=== PATIENT | female | born 1940 | race Caucasian/White ===

== ENCOUNTER → 2016-09-17 | Outpatient (CLI) | payer MEDICARE, OTHER ==
[2016-09-17 10:20] LABS: BUN/CREATININE RATIO 27 (0-10)
== END ==
LOC: LAB 09:07
PROVIDERS: Emergency Medicine
DX: R73.09 Other abnormal glucose (principal); I10 Essential (primary) hypertension; E78.2 Mixed hyperlipidemia
CPT/HCPCS: 36415; 80048; 83036

== ENCOUNTER → 2016-12-17 | Outpatient (CLI) | payer MEDICARE, OTHER ==
[2016-12-17 10:18] LABS: BUN/CREATININE RATIO 36 (0-10)
== END ==
LOC: LAB 09:13
PROVIDERS: Emergency Medicine
DX: E55.9 Vitamin D deficiency, unspecified (principal); E78.2 Mixed hyperlipidemia; E79.0 Hyperuricemia without signs of inflammatory arthritis and tophaceous disease; G56.01 Carpal tunnel syndrome, right upper limb; G56.81 Other specified mononeuropathies of right upper limb; I10 Essential (primary) hypertension; M13.872 Other specified arthritis, left ankle and foot; M76.60 Achilles tendinitis, unspecified leg; M76.62 Achilles tendinitis, left leg; R23.8 Other skin changes; R73.09 Other abnormal glucose
CPT/HCPCS: 36415; 80053; 80061; 83036; 83704; 84550

== ENCOUNTER → 2020-05-31 | Outpatient (CLI) | payer MEDICARE, OTHER ==
[~2020-05-31] MED LIST: AMLODIPINE BESYL5 MG PO; ASPIR 8181 MG PO; CRESTOR10 MG PO; HYDROCHLOROTHIA25 MG PO; KLOR-CON M2020 MEQ PO; METOPROLOL SUC100 MG PO; MOBIC7.5 MG PO; RANITIDINE HCL150 MG PO
== END ==
LOC: EXRD 10:04
DX: M81.0 Age-related osteoporosis without current pathological fracture (principal); M85.852 Other specified disorders of bone density and structure, left thigh
CPT/HCPCS: 77080

== ENCOUNTER → 2020-06-08 | Outpatient (CLI) | payer MEDICARE, OTHER | LOC: KOH-I 10:53 | DX: J20.9 Acute bronchitis, unspecified (principal); R05 Cough | CPT/HCPCS: 71046 ==

== ENCOUNTER → 2020-06-16 | Outpatient (CLI) | payer MEDICARE, OTHER | LOC: MAMO 08:43 | DX: Z12.31 Encounter for screening mammogram for malignant neoplasm of breast (principal) | CPT/HCPCS: 77063; 77067 ==

== ENCOUNTER → 2020-08-09 | Outpatient (CLI) | payer MEDICARE, OTHER ==
[2020-08-09 10:24] LABS: BUN/CREATININE RATIO 22 (0-10)
[2020-08-11 13:15] LABS: CHOLESTEROL, TOTAL 148 mg/dL (100-199); HDL SIZE 8.5 nm (>=9.2); HDL-C 39 mg/dL (>39); HDL-P (TOTAL) 32.4 umol/L (>=30.5); LARGE HDL-P 1.4 umol/L (>=4.8); LARGE VLDL-P 9.6 nmol/L (<=2.7); LDL SIZE 19.9 nm (>20.5); LDL SIZE 19.9 nm (>=20.8); LDL-C 75 mg/dL (0-99); LDL-P 1020 nmol/L (<1000); LP-IR SCORE 89 (<=45); SMALL LDL-P 738 nmol/L (<=527); TRIGLYCERIDES 202 mg/dL (0-149); VLDL SIZE 57.1 nm (<=46.6)
== END ==
LOC: LAB 09:28
PROVIDERS: Emergency Medicine
DX: E11.9 Type 2 diabetes mellitus without complications (principal); E78.5 Hyperlipidemia, unspecified; I10 Essential (primary) hypertension; E55.9 Vitamin D deficiency, unspecified; E79.0 Hyperuricemia without signs of inflammatory arthritis and tophaceous disease; G56.01 Carpal tunnel syndrome, right upper limb; G56.81 Other specified mononeuropathies of right upper limb
CPT/HCPCS: 36415; 80053; 80061; 83704

== ENCOUNTER → 2021-04-25 | Outpatient (CLI) | payer MEDICARE, OTHER ==
[2021-04-26 07:11] LABS: A/G RATIO 2.4 (1.2-2.2); BILIRUBIN, TOTAL 0.4 mg/dL (0.0-1.2); CALCIUM, SERUM 9.6 mg/dL (8.7-10.3); CREATININE, SERUM 0.6 mg/dL (0.57-1.00); GLOBULIN, TOTAL 2.1 g/dL (1.5-4.5); PROTEIN, TOTAL, SERUM 7.2 g/dL (6.0-8.5)
[2021-04-27 11:15] LABS: CHOLESTEROL, TOTAL 185 mg/dL (100-199); HDL SIZE 8.3 nm (>=9.2); HDL-C 40 mg/dL (>39); HDL-P (TOTAL) 34.8 umol/L (>=30.5); LARGE HDL-P <1.3 umol/L (>=4.8); LARGE VLDL-P 15.7 nmol/L (<=2.7); LDL SIZE 19.8 nm (>20.5); LDL SIZE 19.8 nm (>=20.8); LDL-C 98 mg/dL (0-99); LDL-P 1495 nmol/L (<1000); LP-IR SCORE 92 (<=45); SMALL LDL-P 1079 nmol/L (<=527); TRIGLYCERIDES 275 mg/dL (0-149); VLDL SIZE 60.4 nm (<=46.6)
== END ==
LOC: LAB 10:14
PROVIDERS: Emergency Medicine
DX: E78.2 Mixed hyperlipidemia (principal); R73.09 Other abnormal glucose; I10 Essential (primary) hypertension
CPT/HCPCS: 36415; 80053; 80061; 83704

== ENCOUNTER 2021-08-06 09:57 | Emergency (ER) | payer MEDICARE, OTHER ==
[2021-08-06 11:38] LABS: RED BLOOD COUNT 4.88 M/UL (4.00-5.10); WHITE BLOOD COUNT 10.2 K/UL (4.5-11.0)
[2021-08-06 12:00] LABS: BUN/CREATININE RATIO 28 (0-10)
== END 2021-08-06 14:45 | disposition home or self-care (01) ==
LOC: ER1 09:57
PROVIDERS: Nurse Practitioner
DX: R10.9 Unspecified abdominal pain (principal); E78.5 Hyperlipidemia, unspecified; I10 Essential (primary) hypertension; F17.210 Nicotine dependence, cigarettes, uncomplicated; Z79.82 Long term (current) use of aspirin
CPT/HCPCS: 71045; 80053; 81001; 82150; 82550; 82553; 83605; 83690; 84484; 85025; 93005; 96374; 99284; J1885; Q9967

== ENCOUNTER → 2021-10-15 | Outpatient (CLI) | payer MEDICARE, OTHER ==
[2021-10-15 15:03] LABS: HEMOGLOBIN 15.3 gm/dl (12.3-15.3); RED BLOOD COUNT 4.73 M/UL (4.00-5.10); WHITE BLOOD COUNT 12.1 K/UL (4.5-11.0)
[2021-10-15 15:30] LABS: BUN/CREATININE RATIO 24 (0-10)
== END ==
LOC: LAB 14:07
PROVIDERS: Emergency Medicine
DX: R05.1 Acute cough (principal); R04.2 Hemoptysis; R06.2 Wheezing; R06.02 Shortness of breath; J98.11 Atelectasis
CPT/HCPCS: 36415; 71046; 80053; 83880; 85025; 85379

== ENCOUNTER → 2021-10-18 | Outpatient (CLI) | payer MEDICARE, OTHER | LOC: CT 12:50 → KOH-I 15:30 | DX: J20.9 Acute bronchitis, unspecified (principal); R04.2 Hemoptysis; R06.2 Wheezing; R06.02 Shortness of breath; R05.1 Acute cough; J98.11 Atelectasis; K76.89 Other specified diseases of liver; R16.0 Hepatomegaly, not elsewhere classified | CPT/HCPCS: 71250 ==

== ENCOUNTER → 2021-10-29 | Outpatient (CLI) | payer MEDICARE, OTHER | LOC: HEART 5 15:33 | DX: R06.02 Shortness of breath (principal) | CPT/HCPCS: 94060; 94729 ==